=== PATIENT | male | born 1940 | race Caucasian/White ===

== ENCOUNTER 2017-08-11 14:43 | Inpatient (IN) | payer MEDICARE ==
[~2017-08-11] VITALS: Ht 172.7 cm; Wt 75.8 kg
[2017-08-11 14:52] VITALS: BP 142/69; PULSE 96; RESP 16; TEMP 100.9; O2SAT 95
[2017-08-11] MEDS ORDERED: CEPH500C PO (15:12)
--- NOTE | 2017-08-11 15:34 | PD ---
HPI Chief Complaint: right upper extremity pain Time Seen by Provider: 15:07 Travel History International Travel<30 days: No Contact w/Intl Traveler<30days: No Traveled to known affect area: No History of Present Illness HPI 77-year-old male presents to the emergency department for evaluation of right upper extremity pain, swelling, redness 2 days. Patient reports approximately 2 months ago he had contact with poison ruba resulting in contact dermatitis to the right upper extremity. The area was treated with steroids and Benadryl. He reports nonhealing wounds to that extremity since. 2 days ago the area became red, swollen, painful. He was evaluated by his PCP who started him on Keflex. Today he awoke with increased pain and had a documented fever of 102.0 . He reports compliance with his antibiotics. [facility] Past Medical History Narrative Medical Significant for hyperlipidemia, BPH Social History Tobacco Use: No Allergies-Medications (Allergen,Severity, Reaction): Coded Allergies: No Known Allergies (Unverified , 08/11/17) Reported Meds & Prescriptions Reported Meds & Active Scripts Active Pravastatin 10 Mg Tab 10 Mg PO EVERY OTHER DAY Finasteride 5 Mg Tab 5 Mg PO EVERY OTHER DAY Do not crush. Review of Systems Except as stated in HPI: all other systems reviewed are Neg General / Constitutional: Positive: Fever Eyes: No: Visual changes HENT: No: Headaches Cardiovascular: No: Chest Pain or Discomfort Respiratory: No: Shortness of Breath Gastrointestinal: No: Abdominal Pain Genitourinary: No: Dysuria Musculoskeletal: No: Pain Skin: No Rash Physical Exam Narrative GENERAL: Alert, well-nourished male resting comfortably on stretcher. SKIN: Focused skin assessment warm/dry. Notable erythema and edema to the right upper extremity from the wrist extending to the proximal humerus. HEAD: Atraumatic. Normocephalic. EYES: Pupils equal and round. No scleral icterus. No injection or drainage. ENT: No nasal bleeding or discharge. Mucous membranes pink and moist. NECK: Trachea midline. No JVD. CARDIOVASCULAR: Regular rate and rhythm. No murmur appreciated. RESPIRATORY: No accessory muscle use. Clear to auscultation. Breath sounds equal bilaterally. GASTROINTESTINAL: Abdomen soft, non-tender, nondistended. Hepatic and splenic margins not palpable. MUSCULOSKELETAL: No obvious deformities. No clubbing. No cyanosis. Notable erythema and edema to the right upper extremity from the wrist extending to the proximal humerus. NEUROLOGICAL: Awake and alert. No obvious cranial nerve deficits. Motor grossly within normal limits. Normal speech. PSYCHIATRIC: Appropriate mood and affect; insight and judgment normal. Data Data Last Documented VS Vital Signs Date Time Temp Pulse Resp B/P (MAP) Pulse Ox O2 Delivery O2 Flow Rate FiO2 08/11/17 15:51 100.5 86 16 139/67 (91) 98 Room Air Orders Orders Basic Metabolic Panel (Bmp) (08/11/17 15:05) Complete Blood Count With Diff (08/11/17 15:05) Blood Culture (08/11/17 15:05) Iv Access Insert/Monitor (08/11/17 15:05) Lactic Acid Sepsis Protocol (08/11/17 15:06) Vancomycin Inj (Vancomycin Inj) (08/11/17 16:12) Admit Order (Ed Use Only) (08/11/17 16:30) Labs Laboratory Tests Test 08/11/17 15:20 08/11/17 15:33 White Blood Count 14.4 TH/MM3 Red Blood Count 4.79 MIL/MM3 Hemoglobin 14.0 GM/DL Hematocrit 41.7 % Mean Corpuscular Volume 87.0 FL Mean Corpuscular Hemoglobin 29.2 PG Mean Corpuscular Hemoglobin Concent 33.6 % Red Cell Distribution Width 12.8 % Platelet Count 267 TH/MM3 Mean Platelet Volume 7.9 FL Neutrophils (%) (Auto) 86.4 % Lymphocytes (%) (Auto) 6.0 % Monocytes (%) (Auto) 7.1 % Eosinophils (%) (Auto) 0.1 % Basophils (%) (Auto) 0.4 % Neutrophils # (Auto) 12.4 TH/MM3 Lymphocytes # (Auto) 0.9 TH/MM3 Monocytes # (Auto) 1.0 TH/MM3 Eosinophils # (Auto) 0.0 TH/MM3 Basophils # (Auto) 0.1 TH/MM3 CBC Comment DIFF FINAL Differential Comment Blood Urea Nitrogen 10 MG/DL Creatinine 0.87 MG/DL Random Glucose 129 MG/DL Calcium Level 8.6 MG/DL Sodium Level 131 MEQ/L Potassium Level 3.8 MEQ/L Chloride Level 96 MEQ/L Carbon Dioxide Level 25.5 MEQ/L Anion Gap 10 MEQ/L Estimat Glomerular Filtration Rate 86 ML/MIN Lactic Acid Level 1.0 mmol/L [facility] Medical Decision Making Medical Screen Exam Complete: Yes Emergency Medical Condition: Yes Differential Diagnosis Cellulitis of the right upper extremity, outpatient treatment failure, abscess Narrative Course 77-year-old male here with chief complaint of right upper extremity pain and swelling. Patient reports multiple nonhealing lesions on the right upper extremity for the last 2 months. Several days ago he developed increasing pain , redness, and swelling of the arm. This morning he had a documented fever of 102.6. Patient was seen by PCP and placed on Keflex on 08/09/17. Patient reports compliance with this medication. On exam patient has 3 raised lesions with central scabs and extensive cellulitis to the right upper extremity extending from the wrist to the proximal aspect of the humerus. The extremity is warm to touch. 2+ pulses in the extremity. IV access established, labs, blood cultures, lactic acid pending. IV vancomycin administered. CBC: Release a 14.4 Lactic: 1 She will be admitted into the hospital for outpatient treatment failure of right upper extremity cellulitis. Spoke with Dr. Aviles who agrees to accept patient under their services. Diagnosis Primary Impression: Cellulitis of right upper limb Admitting Information Admitting Physician Requests: Admit Scripts Pravastatin (Pravastatin) 10 Mg Tab 10 MG PO EVERY OTHER DAY for Cholesterol Management, #15 TAB 0 Refills Prov: Wilson Posey MD 08/11/17 Finasteride (Finasteride) 5 Mg Tab 5 MG PO EVERY OTHER DAY for Manage Prostate Problems, #15 TAB 0 Refills Do not crush. Prov: Wilson Posey MD 08/11/17 Rachel Cornell Aug 11, 2017 15:34
[2017-08-11 15:40] LABS: AUTOMATED NEUTROPHIL # 12.4 TH/MM3 (1.8-7.7); BASOPHIL # 0.1 TH/MM3 (0-0.2); BASOPHIL % 0.4 % (0.0-2.0); EOSINOPHIL % 0.1 % (0.0-4.0); HEMATOCRIT 41.7 % (39.0-51.0); LYMPHOCYTE # 0.9 TH/MM3 (1.0-4.8); MEAN CORPUSCULAR HEMOGLOBIN 29.2 PG (27.0-34.0); MEAN CORPUSCULAR HGB CONC 33.6 % (32.0-36.0); MONO % 7.1 % (0.0-8.0); NEUT % 86.4 % (16.0-70.0); PLATELET COUNT 267 TH/MM3 (150-450); RED BLOOD COUNT 4.79 MIL/MM3 (4.50-5.90); RED CELL DISTRIBUTION WIDTH 12.8 % (11.6-17.2); WHITE BLOOD COUNT 14.4 TH/MM3 (4.0-11.0)
[2017-08-11 15:41] LABS: HEMO FLAGS DIFF FINAL
[2017-08-11 15:49] LABS: POTASSIUM 3.8 MEQ/L (3.5-5.1)
[2017-08-11 15:51] VITALS: BP 139/67; PULSE 86; RESP 16; TEMP 100.5; O2SAT 98
[2017-08-11 15:52] LABS: BICARBONATE 25.5 MEQ/L (21.0-32.0)
[2017-08-11] MEDS ORDERED: VANCOMYCIN INJ 1,000 MG in SODIUM CHLOR 0.9% 250 ML INJ 250 ML IV STA (16:12)
[2017-08-11] MEDS ORDERED: FINA5TAB2 PO (17:12)
[2017-08-11] MEDS ORDERED: PRAV10TA PO (17:12)
[2017-08-11] MEDS ORDERED: Vancomycin Consult Pharmacy 1 EA OTHER SCH (17:15)
[2017-08-11 17:31] VITALS: BP 134/68; PULSE 82; RESP 16; TEMP 100.5; O2SAT 96
--- NOTE | 2017-08-11 17:39 | MH ---
cc: CAROLINE ORTIZ M.D. DATE OF ADMISSION: 08/11/2017 ADMITTING DIAGNOSIS: Cellulitis right upper extremity Hyperlipidemia BPH. PERTINENT HISTORY This is a 77-year-old white male who apparently was treated for a contact dermatitis of his right upper extremity with steroids and Benadryl approximately 2 months ago. He had some little wounds on his right upper extremities, that kind of persisted and then about 2 days ago the area became red and swollen from his right forearm up to his right axillary region. He was seen by his PCP and put on Keflex which she started yesterday. He apparently developed a fever today up to 102 degrees he came to the emergency room where he has cellulitis of his for right upper extremity and is being admitted for IV antibiotic therapy. He had a low grade fever here in the emergency department, his white count was 14.4. He has no other complaints. She has been healthy. PAST HISTORY He has BPH. He takes finasteride 5 mg a half a tablet every other day. He has hyperlipidemia for which he states he just takes pravastatin 10 mg every other than a day. He denies any hypertension, diabetes, heart disease, lung disease, liver or kidney disease. Denies any peptic ulcer. He has colon disease. He had colonoscopy less than 10 years ago. He has had no stroke or seizure cancer. PAST SURGICAL HISTORY Has had a left inguinal hernia repair had a colonoscopy. ALLERGIES None. MEDICATIONS He is on finasteride 5 mg half every other day. Pravastatin 10 mg every other day. FAMILY HISTORY: His mother at 63 from heart attack. Father at 77 of stroke. SOCIAL HISTORY: He is . 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 REVIEW OF SYSTEMS GENERAL: He has had fevers mentioned. HEAD, EYES, EARS, NOSE, AND THROAT: Without complaints. CARDIOVASCULAR SYSTEM: Chest pain, orthopnea, PND. PULMONARY: No cough, hemoptysis, wheezing. GI: Without complaints. : No dysuria, urgency, frequency. He states he rarely gets up one time at night. EXTREMITIES: He has had the swelling of the right upper extremity and the redness as mentioned. NEUROLOGIC: Without complaints. PHYSICAL EXAMINATION IN GENERAL: Pleasant male in no acute stress. VITAL SIGNS: His temperature here has been 100.9 at the highest. pulse 96, respirations 16, BP 142/69, 139/67, O2 sat 98% on room air. HEAD, EYES, EARS, NOSE, AND THROAT: TMs clear. Nose negative. Mouth without inflammation. NECK: Neck without bruit. No JVD. HEART: Regular rate and rhythm. No murmur. LUNGS: Lungs were clear. ABDOMEN: The abdomen is soft, nontender, no masses. EXTREMITIES: He has a swollen right upper extremity, especially in the forearm region with the redness from just above the wrist all the way up to near the axillary region. He has no open wounds but has some his couple indurated areas on his forearm. The pulses were palpated in the extremities equally. SKIN: As mentioned involving the right upper extremity. NEUROLOGIC: Oriented x3. Cranial nerves, motor sensory intact. LABORATORY His white count is 14.4, hemoglobin 14. He had 86.4 neutrophils, 6.0% Lymphs. Sodium was a little low 131, lactic acid 1.0, BUN, creatinine normal, potassium 3.8. ASSESSMENT As noted. PLAN We will admit him put him on IV vancomycin no further recommendations at this time. We will just be given ALEYDA hose and just Lovenox for DVT prophylaxis. MD JACQUELIN Armijo/devon /5:02 PM /5:18 PM
[2017-08-11 18:00] VITALS: BP 130/72; PULSE 82; RESP 14; TEMP 100.6; O2SAT 97
[2017-08-11] MEDS: ENOXAPARIN SODIUM 40 MG/0.4 ML SYRINGE SQ SCH (18:44)
[2017-08-11 20:00] VITALS: BP 94/63; PULSE 82; RESP 18; TEMP 99; O2SAT 95
[2017-08-12] VITALS: BP 135/70; PULSE 78; RESP 17; TEMP 98.5; O2SAT 98
[2017-08-12] MEDS: VANCOMYCIN 1,000 MG/NS 250 ML IV SCH ×4 (05:15→16:41)
--- NOTE | 2017-08-12 07:28 | HHI.PR ---
Subjective Remarks His right arm is less painful. He states the redness is improved also. Objective Vitals Vital Signs Date Time Temp Pulse Resp B/P (MAP) Pulse Ox O2 Delivery O2 Flow Rate FiO2 08/12/17 00:00 98.5 78 17 135/70 (91) 98 08/11/17 20:00 99.0 82 18 94/63 (73) 95 08/11/17 18:00 100.6 82 14 130/72 (91) 97 08/11/17 17:45 08/11/17 17:31 100.5 82 16 134/68 (90) 96 Room Air 08/11/17 17:27 16 08/11/17 15:51 100.5 86 16 139/67 (91) 98 Room Air 08/11/17 14:52 100.9 96 16 142/69 (93) 95 Result Diagram: 08/11/17 1520 08/11/17 1520 Other Results Laboratory Tests Test 08/11/17 15:20 08/11/17 15:33 White Blood Count 14.4 TH/MM3 Red Blood Count 4.79 MIL/MM3 Hemoglobin 14.0 GM/DL Hematocrit 41.7 % Mean Corpuscular Volume 87.0 FL Mean Corpuscular Hemoglobin 29.2 PG Mean Corpuscular Hemoglobin Concent 33.6 % Red Cell Distribution Width 12.8 % Platelet Count 267 TH/MM3 Mean Platelet Volume 7.9 FL Neutrophils (%) (Auto) 86.4 % Lymphocytes (%) (Auto) 6.0 % Monocytes (%) (Auto) 7.1 % Eosinophils (%) (Auto) 0.1 % Basophils (%) (Auto) 0.4 % Neutrophils # (Auto) 12.4 TH/MM3 Lymphocytes # (Auto) 0.9 TH/MM3 Monocytes # (Auto) 1.0 TH/MM3 Eosinophils # (Auto) 0.0 TH/MM3 Basophils # (Auto) 0.1 TH/MM3 CBC Comment DIFF FINAL Differential Comment Blood Urea Nitrogen 10 MG/DL Creatinine 0.87 MG/DL Random Glucose 129 MG/DL Calcium Level 8.6 MG/DL Sodium Level 131 MEQ/L Potassium Level 3.8 MEQ/L Chloride Level 96 MEQ/L Carbon Dioxide Level 25.5 MEQ/L Anion Gap 10 MEQ/L Estimat Glomerular Filtration Rate 86 ML/MIN Lactic Acid Level 1.0 mmol/L Labs today are pending. Procedures Exam: Pleasant male in no distress HEENT: Pupils equal, sclera white, mouth negative Heart: RRR without murmur Lungs: Clear Abdomen: Soft, nontender Skin: The redness of the right upper extremity has improved with now some fading of the intensity of the redness with less warmness to touch. There is now just minimal swelling of the mid forearm region. A/P Assessment and Plan Assessment: --Cellulitis of the right upper extremity--improving with Vancomycin --BPH--stable --Hyperlipidemia Plan: Continue Vancomycin. If continued improvement tomorrow I will likely discharge him on oral antibiotics with coverage for MRSA. I ordered some Triamcinolone cream for the itching areas of skin in his right wrist and hand region. Wilson Posey MD Aug 12, 2017 07:28
[2017-08-12 08:00] VITALS: BP 128/78; PULSE 68; RESP 18; TEMP 97.7; O2SAT 97
[2017-08-12 08:28] LABS: AUTOMATED NEUTROPHIL # 9.8 TH/MM3 (1.8-7.7); BASOPHIL % 0.4 % (0.0-2.0); EOSINOPHIL % 0.4 % (0.0-4.0); HEMATOCRIT 40.9 % (39.0-51.0); HEMO FLAGS DIFF FINAL; LYMPH % 9.1 % (9.0-44.0); LYMPHOCYTE # 1.1 TH/MM3 (1.0-4.8); MEAN CELL VOLUME 88.4 FL (80.0-100.0); MEAN CORPUSCULAR HEMOGLOBIN 29.7 PG (27.0-34.0); MEAN CORPUSCULAR HGB CONC 33.6 % (32.0-36.0); MONO % 6.3 % (0.0-8.0); NEUT % 83.8 % (16.0-70.0); PLATELET COUNT 289 TH/MM3 (150-450); RED BLOOD COUNT 4.63 MIL/MM3 (4.50-5.90); RED CELL DISTRIBUTION WIDTH 12.5 % (11.6-17.2); WHITE BLOOD COUNT 11.6 TH/MM3 (4.0-11.0)
[2017-08-12 08:31] LABS: POTASSIUM 3.7 MEQ/L (3.5-5.1)
[2017-08-12 08:34] LABS: BICARBONATE 30.4 MEQ/L (21.0-32.0)
[2017-08-12] MEDS: TRIAMCINOLONE ACETONIDE 0.1% CREAM 15 GM TOPICAL SCH ×3 (08:43→20:16)
[2017-08-12 12:00] VITALS: BP 131/66; PULSE 73; RESP 18; TEMP 97.6; O2SAT 96
[2017-08-12 16:00] VITALS: BP 131/66; PULSE 76; RESP 18; TEMP 98; O2SAT 96
[2017-08-12] MEDS: ENOXAPARIN SODIUM 40 MG/0.4 ML SYRINGE SQ SCH (16:46)
[2017-08-12 20:00] VITALS: BP 133/75; PULSE 73; RESP 20; TEMP 98.1; O2SAT 94
[2017-08-13] VITALS: BP 135/71; PULSE 73; RESP 20; TEMP 98.1; O2SAT 96
[2017-08-13] MEDS ORDERED: PHARMACY ORDERED LAB ONE (04:45)
[2017-08-13] MEDS: VANCOMYCIN 1,000 MG/NS 250 ML IV SCH ×4 (05:00→16:20)
[2017-08-13] MEDS: TRIAMCINOLONE ACETONIDE 0.1% CREAM 15 GM TOPICAL SCH ×3 (06:00→21:29)
[2017-08-13 08:00] VITALS: BP 92/70; PULSE 71; RESP 18; TEMP 97.7; O2SAT 97
--- NOTE | 2017-08-13 08:04 | HHI.PR ---
Subjective Remarks He is feeling better. He still has tenderness and swelling of the proximal right forearm. Objective Vitals Vital Signs Date Time Temp Pulse Resp B/P (MAP) Pulse Ox O2 Delivery O2 Flow Rate FiO2 08/13/17 00:00 98.1 73 20 135/71 (92) 96 08/12/17 20:00 98.1 73 20 133/75 (94) 94 08/12/17 16:00 98.0 76 18 131/66 (87) 96 08/12/17 12:00 97.6 73 18 131/66 (87) 96 Result Diagram: 08/12/17 0757 08/12/17 0757 Other Results Laboratory Tests Test 08/11/17 15:20 08/11/17 15:33 08/12/17 07:57 08/13/17 05:15 White Blood Count 14.4 TH/MM3 11.6 TH/MM3 Red Blood Count 4.79 MIL/MM3 4.63 MIL/MM3 Hemoglobin 14.0 GM/DL 13.8 GM/DL Hematocrit 41.7 % 40.9 % Mean Corpuscular Volume 87.0 FL 88.4 FL Mean Corpuscular Hemoglobin 29.2 PG 29.7 PG Mean Corpuscular Hemoglobin Concent 33.6 % 33.6 % Red Cell Distribution Width 12.8 % 12.5 % Platelet Count 267 TH/MM3 289 TH/MM3 Mean Platelet Volume 7.9 FL 7.7 FL Neutrophils (%) (Auto) 86.4 % 83.8 % Lymphocytes (%) (Auto) 6.0 % 9.1 % Monocytes (%) (Auto) 7.1 % 6.3 % Eosinophils (%) (Auto) 0.1 % 0.4 % Basophils (%) (Auto) 0.4 % 0.4 % Neutrophils # (Auto) 12.4 TH/MM3 9.8 TH/MM3 Lymphocytes # (Auto) 0.9 TH/MM3 1.1 TH/MM3 Monocytes # (Auto) 1.0 TH/MM3 0.7 TH/MM3 Eosinophils # (Auto) 0.0 TH/MM3 0.0 TH/MM3 Basophils # (Auto) 0.1 TH/MM3 0.0 TH/MM3 CBC Comment DIFF FINAL DIFF FINAL Differential Comment Blood Urea Nitrogen 10 MG/DL 12 MG/DL Creatinine 0.87 MG/DL 0.80 MG/DL Random Glucose 129 MG/DL 106 MG/DL Calcium Level 8.6 MG/DL 8.9 MG/DL Sodium Level 131 MEQ/L 135 MEQ/L Potassium Level 3.8 MEQ/L 3.7 MEQ/L Chloride Level 96 MEQ/L 99 MEQ/L Carbon Dioxide Level 25.5 MEQ/L 30.4 MEQ/L Anion Gap 10 MEQ/L 6 MEQ/L Estimat Glomerular Filtration Rate 86 ML/MIN 94 ML/MIN Lactic Acid Level 1.0 mmol/L CBC today is pending Procedures Exam: Pleasant male in no distress HEENT: Pupils equal, sclera white, mouth negative Heart: RRR without murmur Lungs: Clear Abdomen: Soft, nontender Skin: The redness of the right upper extremity above the elbow region has essentially resolved. He still has redness, swelling and tenderness of the dorsal lateral aspect of the proximal to mid right forearm A/P Assessment and Plan Assessment: --Cellulitis of the right upper extremity--improving with Vancomycin --BPH--stable --Hyperlipidemia Plan: Continue Vancomycin. Hope to discharge in a day or two. Wilson Posey MD Aug 13, 2017 08:04
[2017-08-13 08:16] LABS: AUTOMATED NEUTROPHIL # 6.7 TH/MM3 (1.8-7.7); BASOPHIL # 0.1 TH/MM3 (0-0.2); BASOPHIL % 1.2 % (0.0-2.0); EOSINOPHIL # 0.1 TH/MM3 (0-0.4); EOSINOPHIL % 1.5 % (0.0-4.0); HEMATOCRIT 38.7 % (39.0-51.0); HEMO FLAGS DIFF FINAL; LYMPH % 11.1 % (9.0-44.0); LYMPHOCYTE # 0.9 TH/MM3 (1.0-4.8); MEAN CELL VOLUME 87.8 FL (80.0-100.0); MEAN CORPUSCULAR HEMOGLOBIN 29.5 PG (27.0-34.0); MEAN CORPUSCULAR HGB CONC 33.7 % (32.0-36.0); MONO % 7.7 % (0.0-8.0); NEUT % 78.5 % (16.0-70.0); PLATELET COUNT 290 TH/MM3 (150-450); RED BLOOD COUNT 4.41 MIL/MM3 (4.50-5.90); RED CELL DISTRIBUTION WIDTH 12.4 % (11.6-17.2); WHITE BLOOD COUNT 8.5 TH/MM3 (4.0-11.0)
[2017-08-13] MEDS ORDERED: FINASTERIDE 5 MG TAB PO SCH (09:00)
[2017-08-13] MEDS ORDERED: PRAVASTATIN SOD 10 MG TAB PO SCH (09:00)
[2017-08-13 14:22] VITALS: BP 136/81; PULSE 63; RESP 18; TEMP 96.7; O2SAT 96
[2017-08-13] MEDS: ENOXAPARIN SODIUM 40 MG/0.4 ML SYRINGE SQ SCH (16:17)
[2017-08-13 18:17] VITALS: BP 141/80; PULSE 70; RESP 18; TEMP 97.3; O2SAT 96
[2017-08-13 20:00] VITALS: BP 134/70; PULSE 66; RESP 18; TEMP 98.4; O2SAT 96
[2017-08-14] VITALS: BP_SYST 110; BP_SYST 123; BP_DIAS 59; BP_DIAS 73; PULSE 72; PULSE 91; RESP 20; TEMP 98.4; O2SAT 95; O2SAT 96
[2017-08-14] MEDS: VANCOMYCIN 1,000 MG/NS 250 ML IV SCH ×2 (05:04)
[2017-08-14] MEDS: TRIAMCINOLONE ACETONIDE 0.1% CREAM 15 GM TOPICAL SCH (05:09)
[2017-08-14] MEDS ORDERED: TRIA.1%T TOPICAL (07:55)
[2017-08-14] MEDS ORDERED: CLIN1CAP6 PO (07:55)
[2017-08-14] MEDS ORDERED: BACT800T5 PO (07:55)
[2017-08-14 08:00] VITALS: BP 161/93; PULSE 75; RESP 21; TEMP 99.7; O2SAT 98
--- NOTE | 2017-08-14 08:16 | HHI.DS ---
Discharge Summary Admission Date Aug 11, 2017 at 16:32 Discharge Date: Aug 14, 2017 Admitting Diagnosis RUE CELLULITIS OUTPATIENT TREATMENT FAILURE (1) Cellulitis of right upper limb Diagnosis: Principal ICD Codes: L03.113 - Cellulitis of right upper limb Status: Acute (2) Hyperlipemia ICD Codes: E78.5 - Hyperlipidemia, unspecified (3) BPH (benign prostatic hyperplasia) Diagnosis: Secondary ICD Codes: N40.0 - Benign prostatic hyperplasia without lower urinary tract symptoms (4) Dermatitis Diagnosis: Secondary ICD Codes: L30.9 - Dermatitis, unspecified Consultants None Procedures Exam: Pleasant male in no distress HEENT: Pupils equal, sclera white, mouth negative Heart: RRR without murmur Lungs: Clear Abdomen: Soft, nontender Skin: The redness of the right upper extremity above the elbow region has resolved as well as the redness from the wrist area up to the proximal third of the forearm. He has some slight residual redness with slight swelling of the soft tissue in the proximal upper forearm on the dorsal lateral aspect but this is also improved from when he came into the hospital.. H Brief History 77 year old white male who presented to the ER on 08-11-17 with increasing redness of his right upper extremity and development of a fever. He had been treated as an outpatient about 2 months prior for what sounded like a contact dermatitis (possible poison sumac or ruba) by his PCP. He stated that never completely resolved and he would still get these little sores on his arm. About 3 days prior to coming here he developed some redness of his forearm and two days prior he saw his PCP (Dr Keating) who gave him Cephalexin. He had only been on it for one day and when he woke up on 08-11-17 he had a fever up to 102 degrees and his entire right arm was red from the wrist to the axilla so he came to the ER where he was admitted for cellulitis. CBC/BMP: 08/13/17 0725 08/12/17 0757 Significant Findings Laboratory Tests Test 08/13/17 05:15 08/13/17 07:25 Vancomycin Level Trough 10.8 MCG/ML White Blood Count 8.5 TH/MM3 Red Blood Count 4.41 MIL/MM3 Hemoglobin 13.0 GM/DL Hematocrit 38.7 % Mean Corpuscular Volume 87.8 FL Mean Corpuscular Hemoglobin 29.5 PG Mean Corpuscular Hemoglobin Concent 33.7 % Red Cell Distribution Width 12.4 % Platelet Count 290 TH/MM3 Mean Platelet Volume 8.0 FL Neutrophils (%) (Auto) 78.5 % Lymphocytes (%) (Auto) 11.1 % Monocytes (%) (Auto) 7.7 % Eosinophils (%) (Auto) 1.5 % Basophils (%) (Auto) 1.2 % Neutrophils # (Auto) 6.7 TH/MM3 Lymphocytes # (Auto) 0.9 TH/MM3 Monocytes # (Auto) 0.7 TH/MM3 Eosinophils # (Auto) 0.1 TH/MM3 Basophils # (Auto) 0.1 TH/MM3 CBC Comment DIFF FINAL Differential Comment Laboratory Tests Test 08/11/17 15:20 08/11/17 15:33 08/12/17 07:57 08/13/17 05:15 White Blood Count 14.4 TH/MM3 (4.0-11.0) 11.6 TH/MM3 (4.0-11.0) Neutrophils (%) (Auto) 86.4 % (16.0-70.0) 83.8 % (16.0-70.0) Lymphocytes (%) (Auto) 6.0 % (9.0-44.0) Neutrophils # (Auto) 12.4 TH/MM3 (1.8-7.7) 9.8 TH/MM3 (1.8-7.7) Lymphocytes # (Auto) 0.9 TH/MM3 (1.0-4.8) Monocytes # (Auto) 1.0 TH/MM3 (0-0.9) Random Glucose 129 MG/DL (74-106) Sodium Level 131 MEQ/L (136-145) 135 MEQ/L (136-145) Chloride Level 96 MEQ/L (98-107) Estimat Glomerular Filtration Rate 86 ML/MIN (>89) Vancomycin Level Trough 10.8 MCG/ML (5.0-10.0) Test 08/13/17 07:25 Red Blood Count 4.41 MIL/MM3 (4.50-5.90) Hematocrit 38.7 % (39.0-51.0) Neutrophils (%) (Auto) 78.5 % (16.0-70.0) Lymphocytes # (Auto) 0.9 TH/MM3 (1.0-4.8) PE at Discharge Pleasant white male in no distress HEENT: Pupils equal, mouth negative Heart: RRR with no murmur Lungs: Clear Abdomen: Soft, nontender Right upper arm: He has resolution of the redness of the right arm from the elbow proximally and from the wrist up the right forearm above the mid portion. He still has some slight induration and redness of the proximal right forearm on the dorsal lateral aspect but this is also improved from admission. Neuro: alert, oriented, no focal findings. Hospital Course Patient was admitted and begun on Vancomycin IV. His cellulitis has responded very nicely to this with just a small area of residual infection only of the right proximal forearm region at this time. His fever has resolved and his white blood cell count has normalized. I will cover him for Staph and Strep organisms at home but I think this was more likely a Staph infection. I will give him Clindamycin and Bactrim DS for 10 more days. I did give him some Triamcinolone Cream 0.1% to help with some itchy areas of his skin (he states it worked well while he was here). He was instructed to see his PCP in 2-3 days to make sure the residual cellulitis is responding to the oral antibiotics. I told him that if the redness starts progressing again up the arm or if he develops any more fever to come back to the hospital. Pt Condition on Discharge: Good Discharge Disposition: Discharge Home Discharge Instructions DIET: Follow Instructions for: Heart Healthy Diet Activities you can perform: Regular-No Restrictions Follow up Referrals: PCP Follow-up - [address] Keating New Medications: Clindamycin (Clindamycin) 300 Mg Cap 300 MG PO Q6H for Infection, #40 CAP 0 Refills Sulfamethoxazole-Trimethoprim (Bactrim DS) 800-160 Mg Tab 1 TAB PO BID for Infection, #20 TAB 0 Refills Triamcinolone Topical (Triamcinolone Topical) 0.1% Cream 1 APPLIC TOPICAL Q8HR for Dermatitis MDD three times a day for 30 Days, #30 TUBE Apply to itching skin three times a day as needed Continued Medications: Finasteride (Finasteride) 5 Mg Tab 5 MG PO EVERY OTHER DAY for Manage Prostate Problems, #15 TAB 0 Refills Do not crush. Pravastatin (Pravastatin) 10 Mg Tab 10 MG PO EVERY OTHER DAY for Cholesterol Management, #15 TAB 0 Refills Wilson Posey MD Aug 14, 2017 08:16
--- NOTE | 2017-08-14 08:23 | HHI.DS ---
Discharge Summary Admission Date Aug 11, 2017 at 16:32 Admitting Diagnosis RUE CELLULITIS OUTPATIENT TREATMENT FAILURE (1) Cellulitis of right upper limb Diagnosis: Principal ICD Codes: L03.113 - Cellulitis of right upper limb Status: Acute (2) Hyperlipemia ICD Codes: E78.5 - Hyperlipidemia, unspecified (3) BPH (benign prostatic hyperplasia) Diagnosis: Secondary ICD Codes: N40.0 - Benign prostatic hyperplasia without lower urinary tract symptoms (4) Dermatitis Diagnosis: Secondary ICD Codes: L30.9 - Dermatitis, unspecified Brief History 77 year old white male who presented to the ER on 08-11-17 with increasing redness of his right upper extremity and development of a fever. He had been treated as an outpatient about 2 months prior for what sounded like a contact dermatitis (possible poison sumac or ruba) by his PCP. He stated that never completely resolved and he would still get these little sores on his arm. About 3 days prior to coming here he developed some redness of his forearm and two days prior he saw his PCP (Dr Keating) who gave him Cephalexin. He had only been on it for one day and when he woke up on 08-11-17 he had a fever up to 102 degrees and his entire right arm was red from the wrist to the axilla so he came to the ER where he was admitted for cellulitis. CBC/BMP: 08/13/17 0725 08/12/17 0757 Significant Findings Laboratory Tests Test 08/11/17 15:20 08/11/17 15:33 08/12/17 07:57 08/13/17 05:15 White Blood Count 14.4 TH/MM3 (4.0-11.0) 11.6 TH/MM3 (4.0-11.0) Neutrophils (%) (Auto) 86.4 % (16.0-70.0) 83.8 % (16.0-70.0) Lymphocytes (%) (Auto) 6.0 % (9.0-44.0) Neutrophils # (Auto) 12.4 TH/MM3 (1.8-7.7) 9.8 TH/MM3 (1.8-7.7) Lymphocytes # (Auto) 0.9 TH/MM3 (1.0-4.8) Monocytes # (Auto) 1.0 TH/MM3 (0-0.9) Random Glucose 129 MG/DL (74-106) Sodium Level 131 MEQ/L (136-145) 135 MEQ/L (136-145) Chloride Level 96 MEQ/L (98-107) Estimat Glomerular Filtration Rate 86 ML/MIN (>89) Vancomycin Level Trough 10.8 MCG/ML (5.0-10.0) Test 08/13/17 07:25 Red Blood Count 4.41 MIL/MM3 (4.50-5.90) Hematocrit 38.7 % (39.0-51.0) Neutrophils (%) (Auto) 78.5 % (16.0-70.0) Lymphocytes # (Auto) 0.9 TH/MM3 (1.0-4.8) PE at Discharge Pleasant white male in no distress HEENT: Pupils equal, mouth negative Heart: RRR with no murmur Lungs: Clear Abdomen: Soft, nontender Right upper arm: He has resolution of the redness of the right arm from the elbow proximally and from the wrist up the right forearm above the mid portion. He still has some slight induration and redness of the proximal right forearm on the dorsal lateral aspect but this is also improved from admission. Neuro: alert, oriented, no focal findings. Hospital Course Patient was admitted and begun on Vancomycin IV. He has responded nicely with this with all the redness of the right arm resolved other than a small area on the dorsal lateral aspect of the right proximal forearm. There is still some slight induration and redness of the skin there but it is much less tender than before. I will send him home on Clindamycin and Bactrim DS for 10 days and he will followup with his PCP in 2-3 days to make sure that area of persistent infection is resolving and not getting worse. He was told that if he develops any fever or worsening of the redness of the right arm to come back to the ER. He is being covered for a likely Staph infection but also Strep infection. Pt Condition on Discharge: Good Discharge Disposition: Discharge Home Discharge Instructions DIET: Follow Instructions for: Heart Healthy Diet Activities you can perform: Regular-No Restrictions Follow up Referrals: PCP Follow-up - [address] Keating PCP Follow-up - 2-[address] Wise New Medications: Clindamycin (Clindamycin) 300 Mg Cap 300 MG PO Q6H for Infection, #40 CAP 0 Refills Sulfamethoxazole-Trimethoprim (Bactrim DS) 800-160 Mg Tab 1 TAB PO BID for Infection, #20 TAB 0 Refills Triamcinolone Topical (Triamcinolone Topical) 0.1% Cream 1 APPLIC TOPICAL Q8HR for Dermatitis MDD three times a day for 30 Days, #30 TUBE Apply to itching skin three times a day as needed Continued Medications: Finasteride (Finasteride) 5 Mg Tab 5 MG PO EVERY OTHER DAY for Manage Prostate Problems, #15 TAB 0 Refills Do not crush. Pravastatin (Pravastatin) 10 Mg Tab 10 MG PO EVERY OTHER DAY for Cholesterol Management, #15 TAB 0 Refills Wilson Posey MD Aug 14, 2017 08:23
== END 2017-08-14 08:51 | disposition home or self-care (01) | DRG 603 ==
LOC: PHEFT 14:43 → PHEDA 16:32 → PH5A 17:49
PROVIDERS: ADMIT Family Medicine; ATTEND Family Medicine
DX: L03.113 Cellulitis of right upper limb (principal); E78.5 Hyperlipidemia, unspecified; N40.0 Benign prostatic hyperplasia without lower urinary tract symptoms; Z79.899 Other long term (current) drug therapy; L30.9 Dermatitis, unspecified
CPT/HCPCS: 80048; 80202; 83605; 85025; 87040; 99285; J1650; J3370; J7050

== ENCOUNTER 2017-09-04 16:35 | Emergency (ER) | payer MEDICARE ==
[~2017-09-04] VITALS: Ht 170.2 cm; Wt 74.0 kg
[~2017-09-04 16:35] MED LIST: BACT800T5 PO; CLIN1CAP6 PO; FINA5TAB2 PO; PRAV10TA PO; TRIA.1%T TOPICAL
[2017-09-04 16:43] VITALS: BP 145/73; PULSE 72; RESP 16; TEMP 98.3; O2SAT 96
--- NOTE | 2017-09-04 17:39 | PD ---
HPI Chief Complaint: Skin Problem Time Seen by Provider: 17:24 Travel History International Travel<30 days: No Contact w/Intl Traveler<30days: No Traveled to known affect area: No History of Present Illness HPI 77-year-old male presents to emergency department complaining of a cyst on the dorsal aspect of his hand. States that this cyst developed after he was given IV 1-1/2 weeks ago for antibiotics. States that the staff had a difficult time obtaining an IV and did end up taking a little bit for the IV. Says he went to his primary care to or he was diagnosed with a cyst. Also states that he went to an urgent care center, had an x-ray of the hand and did not demonstrate an acute process. Patient denies fever, chills, numbness, tingling of the hands. Also denies weakness or dropping objects. Patient has tried warm compresses for symptom reduction and the cyst has decreased in size slightly. PFSH Past Medical History Arthritis: No Asthma: No Autoimmune Disease: No Anxiety: No Depression: No Heart Rhythm Problems: No Cancer: No Cardiovascular Problems: No High Cholesterol: No Chemotherapy: No Chest Pain: No Congestive Heart Failure: No COPD: No Cerebrovascular Accident: No Diabetes: No Diminished Hearing: No Endocrine: No GERD: No Genitourinary: No Hiatal Hernia: No Immune Disorder: No Kidney Stones: No Musculoskeletal: No Neurologic: No Psychiatric: No Reproductive: No Respiratory: No Migraines: No Radiation Therapy: No Renal Failure: No Seizures: No Sickle Cell Disease: No Sleep Apnea: No Thyroid Disease: No Ulcer: No Past Surgical History Abdominal Surgery: Yes (hernia repair) AICD: No Arteriovenous Shunt: No Cardiac Surgery: No Ear Surgery: No Endocrine Surgery: No Eye Surgery: No Genitourinary Surgery: No Insulin Pump: No Joint Replacement: No Neurologic Surgery: Yes (surgery to head "a long time ago") Oral Surgery: No Pacemaker: No Thoracic Surgery: No Other Surgery: Yes (brain operation at 4 days old.) Social History Alcohol Use: Yes (occ) Tobacco Use: No Substance Use: No Allergies-Medications (Allergen,Severity, Reaction): Coded Allergies: No Known Allergies (Unverified , 09/04/17) Reported Meds & Prescriptions Reported Meds & Active Scripts Active Pravastatin 10 Mg Tab 10 Mg PO EVERY OTHER DAY Finasteride 5 Mg Tab 5 Mg PO EVERY OTHER DAY Do not crush. Review of Systems Except as stated in HPI: all other systems reviewed are Neg Physical Exam Narrative GENERAL: Well-developed well-nourished SKIN: Focused skin assessment warm/dry. Left hand: Dorsal aspect along extensor tendon 3 mm round mobile mass, nontender to palpation. Mild erythema over the lesion but no lymphangitic Spread. HEAD: Atraumatic. Normocephalic. NECK: Trachea midline. No JVD. CARDIOVASCULAR: Regular rate and rhythm. No murmur appreciated. RESPIRATORY: No accessory muscle use. Clear to auscultation. Breath sounds equal bilaterally. MUSCULOSKELETAL: No obvious deformities. No clubbing. No cyanosis. No edema. Neurovascularly intact NEUROLOGICAL: Awake and alert. No obvious cranial nerve deficits. Motor grossly within normal limits. Normal speech. PSYCHIATRIC: Appropriate mood and affect; insight and judgment normal. Data Data Last Documented VS Vital Signs Date Time Temp Pulse Resp B/P (MAP) Pulse Ox O2 Delivery O2 Flow Rate FiO2 09/04/17 16:43 98.3 72 16 145/73 (97) 96 Orders Orders Ed Discharge Order (09/04/17 17:40) MDM Medical Decision Making Medical Screen Exam Complete: Yes Emergency Medical Condition: Yes Differential Diagnosis Left hand Thrombo-phlebitis versus cyst versus insect bite Narrative Course 77-year-old male presents to emergency department for a cyst on his left dorsal hand for 1.5 weeks after an IV was placed for antibiotic therapy. Patient has been seen by his primary care physician and urgent care for this issue. Previous x-rays have ruled out bony abnormality. Patient has been using warm compresses with improvement/ decreased size of this lesion. Cyst is mildly fluctuant, mobile along dorsal aspect of hand without evidence of infectious process. Neurovascularly intact Advised patient to continue warm compresses Follow-up with a hand surgeon if signs symptoms do not resolve Diagnosis Primary Impression: Cyst of joint of hand Qualified Codes: M25.842 - Other specified joint disorders, left hand Referrals: Hand Surgeon Primary Care Physician Additional Instructions: Continue warm compresses for the hand. Continue to follow up with primary care physician. Consider a hand specialist Disposition: 01 DISCHARGE HOME Condition: Stable Taylor Busby Sep 04, 2017 17:39
== END 2017-09-04 17:45 | disposition home or self-care (01) ==
LOC: PHEFT 16:35
DX: M25.842 Other specified joint disorders, left hand (principal)
CPT/HCPCS: 99282